=== PATIENT | female | born 1960 | race Caucasian/White ===

== ENCOUNTER 2023-12-07 21:37 | Emergency (ER) | payer OTHER ==
[~2023-12-07] VITALS: Ht 162.6 cm; Wt 114.0 kg
[2023-12-07 21:41] VITALS: TEMP 98; O2SAT 97
[2023-12-07] MEDS: ACETAMINOPHEN 1000MG/100ML 100 ML IV NR (22:51)
[2023-12-07 23:02] LABS: BASOPHILS % 0.8 % (0.0-2.0); EOSINOPHILS % 1.7 % (0.0-5.0); HEMATOCRIT. 45.1 % (36.0-48.0); HEMOGLOBIN. 15.1 g/dL (12.0-16.0); LYMPHOCYTES % 39.5 % (20.0-50.0); MEAN CORPUSCULAR HEMOGLOBIN 29.7 pg (28.0-32.0); MEAN CORPUSCULAR HGB CONC 33.5 g/dL (31.0-37.0); MEAN CORPUSCULAR VOLUME 88.9 fL (81.0-99.0); MEAN PLATELET VOLUME 10.4 fl (7.4-10.4); MONOCYTES % 8.4 % (2.0-8.0); NEUTROPHILS % 49.6 % (40.0-76.0); PLATELET 245 x1000/uL (130-400); RED BLOOD CELL COUNT 5.07 mill/uL (4.2-5.4); RED CELL DISTRIBUTION WIDTH 14.8 % (11.6-14.6); WHITE BLOOD COUNT 5.5 x1000/uL (4.5-11.0)
[2023-12-08 00:17] LABS: CHLORIDE 105 mEq/L (98-107); SODIUM 137 mEq/L (136-145)
[2023-12-08 00:18] LABS: CALCIUM 9.2 mg/dL (8.7-10.4); CARBON DIOXIDE 25 mEq/L (21-32)
[2023-12-08 00:23] LABS: CREATININE 0.6 mg/dL (0.6-1.0); GLUCOSE 107 mg/dL (70-105); UREA NITROGEN BLOOD 12 mg/dL (9-23)
[2023-12-08 00:25] LABS: ALANINE AMINOTRANSFERASE 11 IU/L (10-49); ALBUMIN 3.8 g/dL (3.2-4.8); ASPARTATE AMINOTRANSFERASE 24 IU/L (<34); BILIRUBIN TOTAL 0.8 mg/dL (0.1-1.0)
[2023-12-08 00:26] LABS: TROPONIN I HIGH SENSITIVITY < 4 ng/L (3.0-34)
[2023-12-08 00:39] VITALS: BP 132/76; PULSE 68; RESP 22
== END 2023-12-08 00:45 | disposition home or self-care (01) ==
LOC: ER 21:37
DX: F43.0 Acute stress reaction (principal); R55 Syncope and collapse; I10 Essential (primary) hypertension; F41.9 Anxiety disorder, unspecified; F32.9 Major depressive disorder, single episode, unspecified
CPT/HCPCS: 36415; 71045; 80053; 84484; 85025; 96365; 99285; J0131